=== PATIENT | female | born 1980 | race Two or more races ===

== ENCOUNTER 2016-07-15 13:09 | Emergency (ER) | payer MEDICARE, OTHER ==
[~2016-07-15 13:09] MED LIST: ALBUTEROL17 GM INH; KETOPROFEN PO; MEDROL PO; NO MEDICATIONS; ROBAXIN 750750 M1 DOB; VICODIN 5/500 T1 TAB PO; VOLTAREN50 MG PO; ZANTAC PO; ZITHROMAX PO
== END 2016-07-15 13:35 | disposition home or self-care (01) ==
LOC: SED 13:09
DX: O9A.212 Injury, poisoning and certain other consequences of external causes complicating pregnancy, second trimester (principal); S70.01XA Contusion of right hip, initial encounter; W01.0XXA Fall on same level from slipping, tripping and stumbling without subsequent striking against object, initial encounter; Y92.520 Airport as the place of occurrence of the external cause; O99.332 Smoking (tobacco) complicating pregnancy, second trimester; F17.200 Nicotine dependence, unspecified, uncomplicated; Z3A.26 26 weeks gestation of pregnancy
CPT/HCPCS: 99283

== ENCOUNTER 2016-08-17 21:26 | Emergency (ER) | payer MEDICARE, OTHER ==
--- NOTE | ~2016-08-17 | CR141 ---
[facility] A Service of [facility] & [facility] RADIOLOGY TEXT RESULTS PATIENT: AG ROSENBERG LOCATION: SED : 84 UNIT #: [id number] AGE: [address]: JORDAN SALAS SEX: F ORDER DR: [id number] [id number] E MR#: [id number] Acc #: [id number] NAME: AG ROSENBERG : 1980 SEX: F STUDY DATE/TIME: 08/17/2016 21:42 UNIT: SED ROOM: STUDY DESCRIPTION: CR Hand Min 3 Views Lt Attending Physician: Jordan Salas Ordering Physician: Jordan Salas Primary Care Physician: Primary Care Physician No MEDICAL IMAGING REPORT This report is preliminary unless electronic signature is present. EXAM Left hand 3 views HISTORY Hand pain and laceration after injury today. FINDINGS AP, lateral, and oblique projections of the hand show good mineralization with normal carpal, metacarpal, and phalangeal anatomy without indication of fracture, dislocation, or soft tissue radiopaque foreign body. IMPRESSION Normal hand. Dictated by... Dusty Maria M.D. THIS IS AN ELECTRONICALLY VERIFIED REPORT Dusty Maria M.D. at 08/18/2016 11:05 PM DARIAN/jessy TD: 08/17/2016 22:54 JOB #: [id number] MEDICAL IMAGING REPORT Page 1 of 1
[2016-08-17] MEDS ORDERED: PRENATAL ONE T1 EACH PO (21:38)
== END 2016-08-17 23:25 | disposition home or self-care (01) ==
LOC: SED 21:26
DX: O9A.213 Injury, poisoning and certain other consequences of external causes complicating pregnancy, third trimester (principal); S61.412A Laceration without foreign body of left hand, initial encounter; S61.411A Laceration without foreign body of right hand, initial encounter; F17.210 Nicotine dependence, cigarettes, uncomplicated; W25.XXXA Contact with sharp glass, initial encounter; Y92.009 Unspecified place in unspecified non-institutional (private) residence as the place of occurrence of the external cause
CPT/HCPCS: 12001; 73130; 99283

== ENCOUNTER 2016-10-23 04:02 | Emergency (ER) | payer MEDICARE, OTHER ==
[~2016-10-23] VITALS: Ht 157.5 cm; Wt 51.7 kg
[~2016-10-23 04:02] MED LIST changes: +PRENATAL ONE T1 EACH PO
[2016-10-23] MEDS ORDERED: OXYCONTIN (04:20)
[2016-10-23 05:13] LABS: URINE SOURCE CLEAN CATCH
[2016-10-23 05:16] LABS: URINE APPEARANCE CLEAR; URINE BILIRUBIN NEG (NEG); URINE BLOOD NEG (NEG); URINE COLOR YELLOW; URINE GLUCOSE NEG (NORM); URINE KETONE NEG (NEG); URINE LEUKOCYTE ESTERASE NEG (NEG); URINE NITRATE NEG (NEG); URINE PROTEIN NEG (NEG); URINE UROBILINOGEN 0.2 MG/DL (NORM)
[2016-10-23 05:17] LABS: MICRO INDICATED? NO
== END 2016-10-23 05:55 | disposition home or self-care (01) ==
LOC: SED 04:02
PROVIDERS: Emergency Medicine
DX: O99.89 Other specified diseases and conditions complicating pregnancy, childbirth and the puerperium (principal); R51 Headache; O99.335 Smoking (tobacco) complicating the puerperium; F17.210 Nicotine dependence, cigarettes, uncomplicated
CPT/HCPCS: 81003; 84703; 96372; 99284; J0780